=== PATIENT | female | born 1970 | race Two or more races ===

== ENCOUNTER 2019-03-24 15:35 | Emergency (ER) | payer BC ==
[~2019-03-24] VITALS: Ht 152.4 cm; Wt 72.6 kg
[2019-03-24 16:39] VITALS: BP 133/74
[2019-03-24] MEDS ORDERED: IPRATRPIUM/ALBUTEROL 0.5/2.5MG 3 ML NEBU. NEB ONE (17:00)
--- NOTE | 2019-03-24 17:29 | RAD ---
PA and lateral chest x-ray HISTORY: Cough. FINDINGS: Heart size is normal. Mediastinal silhouette is normal. Heterogeneous opacity of the right upper lobe above the minor fissure. Left lung is clear. No pneumothorax or pleural effusions. Bones are unremarkable. IMPRESSION: Heterogeneous right upper lobe opacity likely lobar pneumonia. Follow-up x-rays after treatment is advised to document that this resolves to exclude a neoplastic process. Electronically signed by: Kun Sutton MD (03/24/2019 5:26 PM) [facility]
[2019-03-24] MEDS ORDERED: DOXY-96 PO (18:14)
[2019-03-24] MEDS ORDERED: GUAI5LIQ PO (18:14)
--- NOTE | 2019-03-24 18:15 | PHYS DOC ---
Past Medical History Past Medical History: No Pertinent History Past Surgical History: No Surgical History Alcohol Use: Occasionally Drug Use: None Adult General Chief Complaint Chief Complaint: MULTIPLE COMPLAINTS HPI HPI Patient is a 48 year old female who presents to the ED today complaining of cough productive in nature and subjective fevers for 3 days. Patient is Persian speaking and interpretation is provided by the son Review of Systems Review of Systems Constitutional: Denies fever or chills [] Eyes: Denies change in visual acuity, redness, or eye pain [] HENT: Denies nasal congestion or sore throat [] Respiratory: Reports cough, denies shortness of breath [] Cardiovascular: No additional information not addressed in HPI [] GI: Denies abdominal pain, nausea, vomiting, bloody stools or diarrhea [] : Denies dysuria or hematuria [] Musculoskeletal: Denies back pain or joint pain [] Integument: Denies rash or skin lesions [] Neurologic: Denies headache, focal weakness or sensory changes [] All other systems were reviewed and found to be within normal limits, except as documented in this note. Current Medications Current Medications Current Medications Medications (Trade) Dose Ordered Sig/Willard Start Time Stop Time Status Last Admin Dose Admin Albuterol/ Ipratropium (Duoneb) 3 ml 1X ONCE 03/24/19 17:00 03/24/19 17:01 DC 03/24/19 17:18 3 ML Allergies Allergies Allergies Coded Allergies Type Severity Reaction Last Updated Verified No Known Drug Allergies 03/24/19 No Physical Exam Physical Exam Constitutional: Well developed, well nourished, no acute distress, non-toxic appearance. [] HENT: Normocephalic, atraumatic, bilateral external ears normal, oropharynx moist, no oral exudates, nose normal. [] Eyes: PERRLA, EOMI, conjunctiva normal, no discharge. [] Neck: Normal range of motion, no tenderness, supple, no stridor. [] Cardiovascular:Heart rate regular rhythm, no murmur [] Lungs & Thorax: Coarse posterior lung bases Abdomen: Bowel sounds normal, soft, no tenderness, no masses, no pulsatile masses. [] Skin: Warm, dry, no erythema, no rash. [] Back: No tenderness, no CVA tenderness. [] Extremities: No tenderness, no cyanosis, no clubbing, ROM intact, no edema. [] Neurologic: Alert and oriented X 3, normal motor function, normal sensory function, no focal deficits noted. [] Psychologic: Affect normal, judgement normal, mood normal. [] Current Patient Data Vital Signs Vital Signs Date Time Temp Pulse Resp B/P (MAP) Pulse Ox O2 Delivery O2 Flow Rate FiO2 03/24/19 17:19 100 03/24/19 16:39 98.4 91 18 133/74 (93) Room Air 98.4 EKG EKG [] Radiology/Procedures Radiology/Procedures []PROCEDURE: CHEST PA & LATERAL PA and lateral chest x-ray HISTORY: Cough. FINDINGS: Heart size is normal. Mediastinal silhouette is normal. Heterogeneous opacity of the right upper lobe above the minor fissure. Left lung is clear. No pneumothorax or pleural effusions. Bones are unremarkable. IMPRESSION: Heterogeneous right upper lobe opacity likely lobar pneumonia. Follow-up x-rays after treatment is advised to document that this resolves to exclude a neoplastic process. Electronically signed by: Kun Sutton MD (03/24/2019 5:26 PM) [facility] DICTATED and SIGNED BY: KUN SUTTON MD DATE: 03/24/19 1726 Course & Med Decision Making Course & Med Decision Making Pertinent Labs and Imaging studies reviewed. (See chart for details) This is a 48-year-old female patient presenting to the ED today with cough and subjective fever for 3 days. Chest x-ray noted for right upper lobe pneumonia. Discharged on doxycycline. Tylenol/Motrin for pain or fever. Follow-up with primary care doctor in the next 3-7 days. Dragon Disclaimer Dragon Disclaimer This electronic medical record was generated, in whole or in part, using a voice recognition dictation system. Departure Departure Impression: Primary Impression: Right upper lobe pneumonia Additional Impression: Fever Disposition: 01 HOME, SELF-CARE Condition: STABLE Referrals: UNKNOWN PCP NAME (PCP) follow up in 3-7 days Patient Instructions: Pneumonia, Adult Additional Instructions: You have pneumonia, we put you on antibiotics, ensure you complete them. Follow- up with your doctor in one week. In the home Scripts Guaifenesin/Codeine Phosphate (GUAIFENESIN-CODEINE SYRUP) 5 Ml Liquid 5 ML PO Q6HRS, #60 LIQUID Prov: BLANCA WALKER APRN 03/24/19 Doxycycline Hyclate (DOXYCYCLINE HYCLATE) 100 Mg Tablet. 1 TAB PO BID, #14 TAB Prov: BLANCA WALKER APRN 03/24/19 Problem Qualifiers Primary Impression: Right upper lobe pneumonia Pneumonia type: due to unspecified organism Qualified Codes: J18.1 - Lobar pneumonia, unspecified organism Additional Impression: Fever Fever type: unspecified Qualified Codes: R50.9 - Fever, unspecified BLANCA WALKER SWIFT TENDER Mar 24, 2019 18:14
== END 2019-03-24 18:27 | disposition home or self-care (01) ==
LOC: ER 15:35
DX: J18.1 Lobar pneumonia, unspecified organism (principal)
CPT/HCPCS: 71046; 94640; 99284; J7620

== ENCOUNTER → 2019-04-29 | Outpatient (CLI) | payer BC ==
[~2019-04-29] MED LIST: DOXY-96 PO; GUAI5LIQ PO
--- NOTE | 2019-04-29 15:47 | RAD ---
EXAM: Chest, 2 views. HISTORY: Pneumonia. COMPARISON: 03/24/2019 FINDINGS: 2 views of the chest are obtained. There has been complete to near complete resolution of previously demonstrated right upper lobe infiltrate. There is no consolidation, pleural effusion or pneumothorax. There is stable suspected chronic interstitial changes. The heart is normal in size. IMPRESSION: Complete to near complete resolution of right upper lobe infiltrate. Electronically signed by: Ericka Arriola MD (04/29/2019 3:44 PM) [place] [id number]
== END | disposition home or self-care (01) ==
LOC: RAD 14:34
PROVIDERS: ATTEND Family Medicine
DX: Z87.01 Personal history of pneumonia (recurrent) (principal)
CPT/HCPCS: 71046

== ENCOUNTER → 2020-02-19 | Outpatient (CLI) | payer BC ==
[~2020-02-19] MED LIST changes: +CONTRAST GIVEN. MC PRN; +IOHEXOL 240 MG/ML 50ML VIAL. PO ONE; +IOHEXOL 300 MG/ML 100ML VIAL. IV ONE
--- NOTE | 2020-02-19 12:32 | RAD ---
EXAM: CT Abdomen and Pelvis with IV contrast INDICATION: Reason: ABD PAIN ELEVATED LAB / Spl. Instructions: INJ 75ML OMNI 300 30 ML OMNI 240 PO / History: TECHNIQUE: Multi-detector row CT images were acquired from the lung bases through the abdomen and pelvis with the use of IV contrast. Sagittal and coronal images were acquired from the transaxial data. All CT scans performed at this facility utilize dose optimization techniques as appropriate to the exam, including the following: Automated exposure control and adjustment of the mA and/or KV according to patient size (this includes techniques or standardized protocols for targeted exams where dose is indication/reason for exam). IV CONTRAST: Administered ORAL CONTRAST: Administered COMPARISON: None FINDINGS: LOWER CHEST: Subsegmental atelectasis in the lingula LIVER: Unremarkable BILIARY SYSTEM: Gallbladder is unremarkable. Bile ducts are not dilated. PANCREAS: Unremarkable SPLEEN: Unremarkable ADRENALS: Unremarkable KIDNEYS & URETERS: Normal right kidney. Left kidney shows a 2 cm staghorn calculus at the superior pole associated with multiple fluid distended calyces and multiple thick walled, ring-enhancing fluid collections extending beyond the left renal cortical margin and through Gerota's fascia to abut the peritoneal lining in the left flank. Anteriorly, this inflammatory process shows loss of tissue planes between the fluid collections and the lateral wall of the descending colon (image 47 of axial series 2). BLADDER: Collapsed and unremarkable. REPRODUCTIVE ORGANS: Unremarkable GASTROINTESTINAL: Apart from the aforementioned discussion in the section about the kidneys, the stomach, small bowel, and colon are unremarkable. The appendix is normal. MESENTERY/PERITONEUM/RETROPERITONEUM: Unremarkable VASCULAR: Unremarkable LYMPH NODES: Reactive left upper quadrant para-aortic lymph nodes are present, largest measuring 16 mm in length and 10 mm short axis diameter.. 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 Emergent urologic consultation recommended. FOR INTERNAL CODING PURPOSES Critical result: Findings discussed with MUNA PNADEY at 02/19/2020 12:28 PM. RESULT CODE: (C) Electronically signed by: Brigid Higgins MD (02/19/2020 12:29 PM) [id number]
== END | disposition home or self-care (01) ==
LOC: CT 09:08
PROVIDERS: ATTEND Family Medicine
DX: N20.0 Calculus of kidney (principal); R74.0 Nonspecific elevation of levels of transaminase and lactic acid dehydrogenase [LDH]; J98.11 Atelectasis
CPT/HCPCS: 74177; Q9966; Q9967